=== PATIENT | male | born 1950 | race Caucasian/White ===

== ENCOUNTER 2016-03-27 14:03 | Outpatient (CLI) | payer MEDICARE ==
[2016-03-27 14:32] LABS: Hematocrit 43.3 % (42.0-52.0); Mean Platelet Volume 9.5 fL (7.4-10.4); Red Blood Cell (RBC) Count 4.95 mill/uL (4.70-6.10); White Blood Cell (WBC) Count 10.3 thou/uL (4.8-10.8)
[2016-03-27 14:56] LABS: ALT (SGPT) 30 U/L (0-55); AST (SGOT) 26 U/L (5-34); Alkaline Phosphatase 74 U/L (40-150); Anion Gap 16 mmol/L (10-20); BUN (Urea Nitrogen) 17 mg/dL (8.4-25.7); Bilirubin, Total 0.6 mg/dL (0.2-1.2); Calc. Creatinine Clearance 0 mL/min (70-130); Calcium 9.5 mg/dL (7.8-10.44); Carbon Dioxide 28 mmol/L (23-31); Chloride 100 mmol/L (98-107); Estimated GFR-MDRD 70; Globulin 3.1 g/dL (2.4-3.5)
== END 2016-03-27 14:04 | disposition home or self-care (01) ==
LOC: BURLAB 14:03
PROVIDERS: ATTEND Physician Assistant Medical
DX: B19.20 Unspecified viral hepatitis C without hepatic coma (principal)
CPT/HCPCS: 36415; 80053; 85027; 87522

== ENCOUNTER 2016-07-30 13:56 | Outpatient (CLI) | payer MEDICARE ==
--- NOTE | 2016-07-30 16:29 | RAD ---
LEFT FOOT THREE VIEWS: Date: 07-30-16 Comparison: None. FINDINGS: There is a small avulsion fracture at the base of the fifth metatarsal that is obviously old. It is avulsed and retracted from the base of the bone. The remainder of the foot appears intact. There wer e no acute bony findings. IMPRESSION: Old avulsion at the base of the fifth metatarsal. POS: HOME
== END 2016-07-30 13:57 | disposition home or self-care (01) ==
LOC: BURRAD 13:56
PROVIDERS: ATTEND Family Medicine
DX: M79.672 Pain in left foot (principal); Z87.81 Personal history of (healed) traumatic fracture

== ENCOUNTER 2018-02-26 07:46 | Outpatient (CLI) | payer MEDICARE ==
--- NOTE | 2018-02-26 14:06 | CT ---
CT ABDOMEN AND PELVIS WITH CONTRAST: DATE: 02/26/2018. FINDINGS: Spiral CT of the abdomen and pelvis was performed for evaluation of abdomen and back pain for several days. Axial slices were acquired, then coronal and sagittal reconstructions were done. There is so me motion artifact present on particularly the upper slices that slightly degrades some images. The lung bases are clear. The liver seems slightly generous in size and inhomogeneous in echotexture . There are several vague low-density areas scattered throughout the liver. Statistically, these ar e more likely small cysts than not. Ultrasound would be needed to be confirmatory and make sure it w as not other pathology. There are no dilated cuts or other abnormalities of concern in the liver. T he spleen was mildly enlarged measuring about 17.8 cm in length. The gallbladder is rather long, rainer ng 10 cm in length, but it is not really distended and there is no sign of wall thickening or stones within it. The pancreas and adrenal glands were unremarkable. The aorta was normal in caliber throu ghout. There is a 2.4 cm cystic area I the lower pole of the left kidney and a 1.8 cm cystic area in the lower pole of the left kidney. These are most likely simple cysts. Ultrasound would also be ne eded to confirm that. The bowel shows no distension, wall thickening, or inflammatory change around it. No free air or mary e fluid was evident. CT of the pelvis shows no pelvic masses, fluid collections, or inflammatory changes. The prostate is mildly large at 5.2 cm in diameter. There is some disk space narrowing at L4-L5. A very small central bulge is seen to this disk that sl ightly effaces the thecal sac. The AP diameter of the spinal canal at this point is still 1.1 cm. N o vertebral fractures were appreciated. There is slight curvature of the spine. IMPRESSION: 1. Mild hepatic and splenic enlargement. Possible small hepatic cysts. Ultrasound would be needed to absolutely ensure that these were cysts and not other pathology. 2. Probable cyst in each kidney. 3. Prostatic enlargement. 4. Mild central bulge of the L4-L5 disk. CODE T POS: [facility]
== END 2018-02-26 07:47 | disposition home or self-care (01) ==
LOC: BURCT 07:46
PROVIDERS: ATTEND Family Medicine
DX: R10.13 Epigastric pain (principal); R16.2 Hepatomegaly with splenomegaly, not elsewhere classified; N40.0 Benign prostatic hyperplasia without lower urinary tract symptoms; M51.26 Other intervertebral disc displacement, lumbar region; N28.1 Cyst of kidney, acquired
CPT/HCPCS: 74177